=== PATIENT | male | born 1960 | race African-American/Black ===

== ENCOUNTER 2016-11-26 22:46 | Inpatient (IN) | payer OTHER ==
[~2016-11-26] VITALS: Ht 172.7 cm; Wt 83.5 kg
[2016-11-26] MEDS ORDERED: ATRIPLA TABLET1 EAC1 ORAL (22:59)
[2016-11-26] MEDS ORDERED: KEPPRA750 MG ORAL (22:59)
[2016-11-26] MEDS ORDERED: Morphine Sulfate 4mg/ml Inj IVP ONE (23:00)
[2016-11-26 23:05] VITALS: BP 127/70
[2016-11-26 23:21] LABS: BASOPHILS % (AUTO) 0.3 % (0.0-2.0); EOSINOPHILS % (AUTO) 6.3 % (0.0-3.0); LYMPHOCYTES % (AUTO) 31.7 % (20.0-45.0); MEAN CORPUSCULAR HEMOGLOBIN 31.4 PG (27.0-31.0); MEAN CORPUSCULAR HGB CONC 35.2 G/DL (32.0-36.0); MEAN CORPUSCULAR VOLUME 89 FL (80-99); MEAN PLATELET VOLUME 9.4 FL (6.5-10.1); MONOCYTES % (AUTO) 5.2 % (1.0-10.0); NEUTROPHILS % (AUTO) 56.6 % (45.0-75.0); PLATELET COUNT 158 K/UL (150-450); RED CELL DISTRIBUTION WIDTH 11.7 % (11.6-14.8); WHITE BLOOD COUNT 6.8 K/UL (4.8-10.8)
[2016-11-26 23:35] LABS: ALANINE AMINOTRANSFERASE 15 U/L (3-41); ALBUMIN/GLOBULIN RATIO 1.2 (1.0-2.7); ANION GAP 16 (5-15); ASPARTATE AMINO TRANSFERASE 17 U/L (5-40); CALCIUM 9.1 mg/dL (8.6-10.2); CARBON DIOXIDE 23 mEQ/L (20-30); CHLORIDE 97 mEQ/L (98-107); GLOMERULAR FILTRATION RATE > 60 mL/min (>60); HEMOLYSIS 15; LIPASE 47 U/L (< 60); POTASSIUM 4.3 mEQ/L (3.4-4.9); SODIUM 136 mEQ/L (135-145); TOTAL PROTEIN 7.3 g/dL (6.6-8.7); TROPONIN I < 0.30 ng/mL (<=0.30)
[2016-11-26 23:45] LABS: CKMB 1.9 ng/mL (< 6.7)
--- NOTE | 2016-11-27 00:39 | Emergency Room Report ---
History of Present Illness General Chief Complaint: Chest Pain Source: Patient Present Illness HPI Patient presents with complaints of midsternal chest pain Patient reports onset was this afternoon Pain came on during rest At this time patient is pain free Denies any back or flank pain Patient also reports epigastric discomfort Patient has a history of seizure disorder is on Keppra Has been seizure free over the past 10 years Patient is also on HIV medication , Allergies: Coded Allergies: No Known Allergies (Unverified , 11/26/16) Patient History Past Medical History: see triage record Past Surgical History: none Reviewed Nursing Documentation: PMH: Agreed, PSxH: Agreed Nursing Documentation-PMH Hx Seizures: Yes Review of Systems All Other Systems: negative except mentioned in HPI Physical Exam Vital Signs Date Time Temp Pulse Resp B/P Pulse Ox O2 Delivery O2 Flow Rate FiO2 11/26/16 22:54 98.8 59 16 129/77 100 Room Air Sp02 EP Interpretation: reviewed, normal General Appearance: well appearing, no apparent distress Head: normocephalic, atraumatic Eyes: bilateral eye EOMI, bilateral eye PERRL ENT: hearing grossly normal, normal pharynx, TMs + canals normal, uvula midline Neck: full range of motion, supple, no meningismus, no bony tend Respiratory: lungs clear, normal breath sounds, no rhonchi, no respiratory distress, no retraction, no accessory muscle use Cardiovascular #1: normal peripheral pulses, regular rate, rhythm, no edema, no gallop, no JVD, no murmur Gastrointestinal: normal bowel sounds, non tender, soft, no organomegaly, non- distended, no guarding, no hernia, no pulsatile mass, other - Patient has a mildly distended abdomen but soft on exam Genitourinary: no CVA tenderness Musculoskeletal: normal inspection Neurologic: oriented x3, responsive, 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, motor strength/ tone normal, sensory intact Psychiatric: mood/affect normal Skin: normal color, no rash, warm/dry, palpation normal Lymphatic: normal inspection, no adenopathy Medical Decision Making Diagnostic Impression: Primary Impression: ACS (acute coronary syndrome) ER Course Patient is a fairly complex patient with multiple differential to consideration including but not limited to cardiac cardiopulmonary and vascular emergencies Patient's blood work is at baseline levels X-ray imaging is appropriate Patient has done better with pain medication and is admitted for further inpatient care Labs Test 11/26/16 23:11 White Blood Count 6.8 K/UL (4.8-10.8) Red Blood Count 4.50 M/UL (4.70-6.10) Hemoglobin 14.1 G/DL (14.2-18.0) Hematocrit 40.1 % (42.0-52.0) Mean Corpuscular Volume 89 FL (80-99) Mean Corpuscular Hemoglobin 31.4 PG (27.0-31.0) Mean Corpuscular Hemoglobin Concent 35.2 G/DL (32.0-36.0) Red Cell Distribution Width 11.7 % (11.6-14.8) Platelet Count 158 K/UL (150-450) Mean Platelet Volume 9.4 FL (6.5-10.1) Neutrophils (%) (Auto) 56.6 % (45.0-75.0) Lymphocytes (%) (Auto) 31.7 % (20.0-45.0) Monocytes (%) (Auto) 5.2 % (1.0-10.0) Eosinophils (%) (Auto) 6.3 % (0.0-3.0) Basophils (%) (Auto) 0.3 % (0.0-2.0) Sodium Level 136 mEQ/L (135-145) Potassium Level 4.3 mEQ/L (3.4-4.9) Chloride Level 97 mEQ/L (98-107) Carbon Dioxide Level 23 mEQ/L (20-30) Anion Gap 16 (5-15) Blood Urea Nitrogen 17 mg/dL (7-23) Creatinine 1.0 mg/dL (0.7-1.2) Estimat Glomerular Filtration Rate > 60 mL/min (>60) Glucose Level 104 mg/dL (74-106) Calcium Level 9.1 mg/dL (8.6-10.2) Total Bilirubin < 0.2 mg/dL (0.0-1.2) Aspartate Amino Transf (AST/SGOT) 17 U/L (5-40) Alanine Aminotransferase (ALT/SGPT) 15 U/L (3-41) Alkaline Phosphatase 42 U/L (40-129) Total Creatine Kinase 101 U/L (38-174) Creatine Kinase MB 1.9 ng/mL (< 6.7) Creatine Kinase MB Relative Index 1.8 Troponin I < 0.30 ng/mL (<=0.30) Total Protein 7.3 g/dL (6.6-8.7) Albumin 4.0 g/dL (3.5-5.2) Globulin 3.3 g/dL Albumin/Globulin Ratio 1.2 (1.0-2.7) Lipase 47 U/L (< 60) EKG Diagnostic Results Rate: normal Rhythm: NSR ST Segments: no acute changes Rhythm Strip Diag. Results EP Interpretation: yes Rate: 65 Rhythm: NSR, no PVC's, no ectopy Chest X-Ray Diagnostic Results EP Interpretation: Yes Findings: no consolidation, no effusion, no pneumothorax Number of Views: 1 Last Vital Signs Date Time Temp Pulse Resp B/P Pulse Ox O2 Delivery O2 Flow Rate FiO2 11/26/16 23:05 98.8 58 16 127/70 100 Room Air Status: improved Disposition: ADMITTED INPATIENT Condition: Serious Referrals: [facility],REFERRING (PCP) LILO VELÁSQUEZ D.O. Nov 27, 2016 00:39
[2016-11-27] MEDS ORDERED: Ketorolac 30mg Inj IV PRN (00:45)
[2016-11-27] MEDS ORDERED: Nitroglycerin Subl 0.4mg tab (Bottle Of 25) SL PRN (00:45)
[2016-11-27] MEDS ORDERED: DuoNeb 0.5-3(2.5)mg/3ml neb HHN PRN (00:45)
[2016-11-27] MEDS ORDERED: Morphine Sulfate 2mg/ml Inj IVP PRN (00:45)
[2016-11-27] MEDS ORDERED: Miralax 17gm pkt ORAL PRN (00:45)
[2016-11-27 01:40] VITALS: BP 127/68
[2016-11-27 05:14] VITALS: BP 97/48
[2016-11-27] MEDS ORDERED: KEPPRA750 MG ORAL (06:33)
[2016-11-27 06:59] VITALS: BP 107/68
[2016-11-27] MEDS ORDERED: Enalaprilat 2.5mg/2ml Inj IV PRN (07:30)
[2016-11-27] MEDS ORDERED: Diltiazem 25mg/5ml IV PRN (07:30)
[2016-11-27 08:00] VITALS: BP 107/71
[2016-11-27] MEDS ORDERED: Aspirin Baby 81mg ORAL SCH (09:00)
[2016-11-27] MEDS ORDERED: Heparin 5000 units/ml inj SUBQ SCH (09:00)
--- NOTE | 2016-11-27 09:03 | Consultation ---
Consult Note Consult Note ID CONSULT: Dict# [id number] Assessment/Plan ASSESSMENT: 56 y/o male with: // Atypical chest pain - trop(-) x1 - TTE: pending // HIV(+), on atripla - unknown CD4 // Afebrile without leukocytosis // Seizure disorder, on anti-epileptics // NKDA // Full Code PLAN: - resume atripla, f/u with regular HIV provider at discharge - f/u CD4 - f/u imaging - monitor CBC, temperatures, brown-culture if acute change - monitor BMP - monitor troponin Thanks! Will follow AMY DELGADO Nov 27, 2016 09:03
--- NOTE | 2016-11-27 11:20 | Diagnostic Imaging Report ---
Indication: Chest pain Technique: One view of the chest Comparison: none Findings: The heart is enlarged. Lungs and pleural spaces are clear. Impression: No acute process This agrees with the preliminary interpretation provided by the emergency room physician
[2016-11-27 12:00] VITALS: BP 104/68
[2016-11-27 12:21] LABS: TROPONIN I < 0.30 ng/mL (<=0.30)
--- NOTE | 2016-11-27 13:03 | Consultation ---
History of Present Illness General Date patient seen: Nov 27, 2016 Chief Complaint: Chest Pain Referring physician: Dr. Hargrove Present Illness HPI 56 year old male with hx of HIV, unknown DC 4,presented with complaints of midsternal chest pain, during rest Patient also reports epigastric discomfort. Allergies: Coded Allergies: No Known Allergies (Unverified , 11/26/16) Medication History Scheduled Efavirenz/Emtricitab/Tenofovir (Atripla), 1 TAB ORAL DAILY, (Reported) Miscellaneous Medications Levetiracetam (Keppra), 750 MG ORAL, (Reported) Discontinued Medications Levetiracetam (Keppra), 750 MG ORAL BID, (Reported) Discontinued Reason: Medication dose changed Patient History Healthcare decision maker Resuscitation status Full Code Advanced Directive on File Review of Systems All Other Systems: negative except mentioned in HPI Physical Exam General Appearance: WD/WN Lines, tubes and drains: peripheral HEENT: normocephalic, atraumatic Neck: non-tender, normal alignment Respiratory/Chest: chest wall non-tender, lungs clear Cardiovascular/Chest: normal peripheral pulses, normal rate Abdomen: normal bowel sounds Genitourinary/Rectal: normal genital exam Last 24 Hour Vital Signs Date Time Temp Pulse Resp B/P Pulse Ox O2 Delivery O2 Flow Rate FiO2 11/27/16 12:00 97.7 63 20 104/68 97 Room Air 11/27/16 08:00 55 11/27/16 08:00 97.5 58 20 107/71 99 Room Air 11/27/16 07:17 98.8 61 16 107/68 100 Room Air 11/27/16 06:59 98.8 61 16 107/68 100 Room Air 11/27/16 05:14 98.8 61 16 97/48 100 Room Air 11/27/16 01:40 98.8 58 16 127/68 100 Room Air 11/26/16 23:48 98.8 11/26/16 23:05 98.8 58 16 127/70 100 Room Air 11/26/16 23:05 58 16 Room Air 11/26/16 22:54 98.8 59 16 129/77 100 Room Air Intake and Output 11/26/16 11/27/16 19:00 07:00 Output Total 375 ml Balance -375 ml Output Urine Total 375 ml Laboratory Tests Test 11/26/16 23:11 11/27/16 11:45 White Blood Count 6.8 K/UL (4.8-10.8) Pending Red Blood Count 4.50 M/UL (4.70-6.10) L Hemoglobin 14.1 G/DL (14.2-18.0) L Hematocrit 40.1 % (42.0-52.0) L Mean Corpuscular Volume 89 FL (80-99) Mean Corpuscular Hemoglobin 31.4 PG (27.0-31.0) H Mean Corpuscular Hemoglobin Concent 35.2 G/DL (32.0-36.0) Red Cell Distribution Width 11.7 % (11.6-14.8) Platelet Count 158 K/UL (150-450) Mean Platelet Volume 9.4 FL (6.5-10.1) Neutrophils (%) (Auto) 56.6 % (45.0-75.0) Lymphocytes (%) (Auto) 31.7 % (20.0-45.0) Monocytes (%) (Auto) 5.2 % (1.0-10.0) Eosinophils (%) (Auto) 6.3 % (0.0-3.0) H Basophils (%) (Auto) 0.3 % (0.0-2.0) Sodium Level 136 mEQ/L (135-145) Potassium Level 4.3 mEQ/L (3.4-4.9) Chloride Level 97 mEQ/L (98-107) L Carbon Dioxide Level 23 mEQ/L (20-30) Anion Gap 16 (5-15) H Blood Urea Nitrogen 17 mg/dL (7-23) Creatinine 1.0 mg/dL (0.7-1.2) Estimat Glomerular Filtration Rate > 60 mL/min (>60) Glucose Level 104 mg/dL (74-106) Calcium Level 9.1 mg/dL (8.6-10.2) Total Bilirubin < 0.2 mg/dL (0.0-1.2) Aspartate Amino Transf (AST/SGOT) 17 U/L (5-40) Alanine Aminotransferase (ALT/SGPT) 15 U/L (3-41) Alkaline Phosphatase 42 U/L (40-129) Total Creatine Kinase 101 U/L (38-174) Creatine Kinase MB 1.9 ng/mL (< 6.7) Creatine Kinase MB Relative Index 1.8 Troponin I < 0.30 ng/mL (<=0.30) < 0.30 ng/mL (<=0.30) Total Protein 7.3 g/dL (6.6-8.7) Albumin 4.0 g/dL (3.5-5.2) Globulin 3.3 g/dL Albumin/Globulin Ratio 1.2 (1.0-2.7) Lipase 47 U/L (< 60) Lymphocytes Pending Percent CD3 Cells Pending Absolute CD3 Count Pending Percent CD4 Cells Pending Absolute CD4 Count Pending T-Lymphocyte CD4/CD8 Ratio Pending Percent CD8 Cells Pending Absolute CD8 Count Pending Height (Feet): 5 Height (Inches): 8.00 Weight (Pounds): 184 Medications Current Medications Medications (Trade) Dose Ordered Sig/Jessica Route PRN Reason Start Time Stop Time Status Last Admin Dose Admin Acetaminophen (Tylenol) 650 mg Q4H PRN ORAL FEVER 11/27/16 00:45 12/27/16 00:44 Albuterol/ Ipratropium (DuoNeb 0.5-3(2.5)mg/3ml) 3 ml Q4H PRN HHN Shortness of Breath 11/27/16 00:45 12/02/16 00:44 Aspirin (ASA) 162 mg DAILY ORAL 11/27/16 09:00 12/27/16 08:59 11/27/16 09:21 Diltiazem HCl (Cardizem) 10 mg EVERY HOUR PRN IV heart rate more than 120 BPM 11/27/16 07:30 12/27/16 07:29 Efavirenz (Sustiva) 600 mg BEDTIME ORAL 11/27/16 21:00 12/27/16 20:59 UNV Emtricitabine/ Tenofovir (Truvada 200/ 300mg) 1 tab DAILY ORAL 11/27/16 21:00 12/27/16 20:59 UNV Enalaprilat (Vasotec) 2.5 mg Q6H PRN IV sbp more than 160 11/27/16 07:30 4 07:29 Heparin Sodium (Porcine) (Heparin 5000 units/ml) 5,000 units EVERY 12 HOURS SUBQ 11/27/16 09:00 12/27/16 08:59 11/27/16 09:22 Morphine Sulfate (Morphine Sulfate) 2 mg Q4H PRN IVP severe Pain (Pain Scale 7-10) 11/27/16 00:45 12/04/16 00:44 Nitroglycerin (Ntg) 0.4 mg Q5M PRN SL Prn Chest Pain 11/27/16 00:45 12/27/16 00:44 Ondansetron HCl (Zofran) 4 mg Q6H PRN IVP Nausea & Vomiting 11/27/16 00:45 12/27/16 00:44 Pantoprazole (Protonix) 40 mg DAILY ORAL 11/27/16 09:00 12/27/16 08:59 11/27/16 09:21 Polyethylene Glycol (Miralax) 17 gm DAILYPRN PRN ORAL Constipation 11/27/16 00:45 12/27/16 00:44 Temazepam (Restoril) 15 mg HSPRN PRN ORAL Insomnia 11/27/16 00:45 12/04/16 00:44 Assessment/Plan Problem List: (1) ACS (acute coronary syndrome) ICD Codes: I24.9 - Acute ischemic heart disease, unspecified SNOMED: 262730510 (2) HIV disease ICD Codes: B20 - Human immunodeficiency virus [HIV] disease SNOMED: 68989106 Assessment/Plan serial ekg, troponin, HIV consult symptomatic treatment. CHINYERE SUMMERS Nov 27, 2016 13:03
--- NOTE | 2016-11-27 14:40 | History & Physical ---
History and Physical History & Physicial Lloyd Hargrove MD Nov 27, 2016 14:40
--- NOTE | 2016-11-27 17:18 | Consultation ---
DATE OF CONSULTATION: 11/27/2016 REQUESTING PHYSICIAN: Lloyd Hargrove M.D. REASON FOR CONSULTATION: Human immunodeficiency virus. HISTORY OF PRESENT ILLNESS: This is a 56-year-old [place]er male with a history of HIV on Atripla admitted on 11/27/2016 with atypical chest pain. Troponin is negative x1. EKG is unavailable. Echocardiogram is pending. Chest pain now resolved. He is afebrile without leukocytosis. No cultures have been sent. He is not currently receiving any antibiotics or antiretroviral. ID now consulted to assist in management. PAST MEDICAL HISTORY: 1. Human immunodeficiency virus positive, on Atripla with unknown CD4 count. He has human immunodeficiency virus follow up next month. 2. Seizure disorder, on Keppra. PAST SURGICAL HISTORY: None. FAMILY HISTORY: Noncontributory. SOCIAL HISTORY: The patient is originally from [facility]. He has been in [place] for 7 years. Denies tobacco, alcohol, or illicit drug abuse. ALLERGIES: No known drug allergies. MEDICATIONS: 1. No antibiotics. 2. Outpatient Atripla. 3. Aspirin. 4. Protonix. 5. Subcutaneous heparin. REVIEW OF SYSTEMS: As per history of present illness. Ten systems reviewed. All pertinent positives and negatives noted. PHYSICAL EXAMINATION: VITAL SIGNS: Maximum temperature 98.8, blood pressure 107/71, heart rate in the 60s, respiratory rate 20, and saturating 99% on room air. GENERAL: No apparent distress. Nontoxic appearing. CARDIOVASCULAR: Regular rate and rhythm. No murmurs. Chest pain nonreproducible. PULMONARY: Clear to auscultation bilaterally. ABDOMEN: Bowel sounds present. Soft, nondistended, and nontender. EXTREMITIES: No edema. SKIN: No rash. NEUROLOGICAL: Alert and oriented x3, nonfocal. LABORATORY DATA: White blood cell count 6.8, hemoglobin 14.1, platelets 158,000. Sodium 136, potassium 4.3, chloride 97, bicarbonate 23, BUN 17, and creatinine 1. Lipase and LFTs within normal limits. Troponin negative x1. Microbiology, none. IMAGIN. On 11/26/2016 chest x-ray pending. 2. On 11/26/2016 echocardiogram pending. ASSESSMENT: 1. Atypical chest pain with negative troponin x1. 2. EKG unavailable and echocardiogram pending. 3. Human immunodeficiency virus positive, on Atripla with unknown CD4 count. 4. Afebrile without leukocytosis. 5. Seizure disorder. 6. No known drug allergies. 7. Full Code. PLAN: 1. Resume Atripla and followup with regular HIV provider at discharge. 2. Follow up CD4 count. 3. Followup imaging. 4. Monitor CBC and temperatures and panculture if acute change. 5. Monitor BMP. 6. Monitor troponin. Thank you. We will follow. Kenton Anderson M.D. DR: Pancho JOB#: [id number] CC: Lloyd Hargrove M.D.; Fax#: [phone] Smith, M.D. Jose Almodovar M.D; Fax#: [phone]
[2016-11-27] MEDS ORDERED: Efavirenz 200mg cap ORAL SCH (21:00)
[2016-11-27] MEDS ORDERED: Emitricitabine/Tenofovir 200/300mg tab ORAL SCH (21:00)
--- NOTE | 2016-11-28 02:48 | History and Physical Report ---
DATE OF ADMISSION: 11/26/2016 CHIEF COMPLAINT: Chest pain. HISTORY OF PRESENT ILLNESS: This is a 56-year-old M[place] gentleman with a past medical history significant for seizure disorder as well as HIV, on the retroviral medication, who was presented to the hospital complaining about shortness of breath associated with chest pain when he drinks coffee. He stated that it started last night, got progressively worse and he decided to come to the hospital. Shortly after initial evaluation in the emergency, the patient was admitted to the hospital with chest pain, possible acute coronary syndrome. PAST MEDICAL HISTORY/PAST SURGICAL HISTORY: As above. History of seizure disorder. Human immunodeficiency virus. MEDICATIONS: Medications at home is significant for Atripla as well as Keppra. ALLERGY: No known drug allergies. SOCIAL HISTORY: Denies any smoking, alcohol, or drugs. FAMILY HISTORY: Noncontributory. REVIEW OF SYSTEMS: Mostly as above. Denies any dysuria, frequency, hematuria, or hematochezia. Denies any hemoptysis or hematochezia. Denies any chest pain at this time. Denies any seizure activity. Denies any loss of consciousness. Denies any suicidal or homicidal ideation. PHYSICAL EXAMINATION: VITAL SIGNS: On admission, temperature 98.8, pulse of 59, respirations 16, and blood pressure 129/77. GENERAL: The patient is awake, responsive, in no acute distress. HEENT: Pupils are reactive to light. Extraocular movements are intact. NECK: Supple. No JVD. LUNGS: Good air entry. No wheezing or rales. HEART: S1 and S2. Regular rhythm. No gallops. ABDOMEN: Soft, mildly distended. No rebound tenderness. No fluid shift. EXTREMITIES: No cyanosis, clubbing, or edema. NEUROLOGIC: Cranial nerves II through XII are grossly intact. Motor is 5/5 in all the extremities. LABORATORY DATA: On admission from the ER, 3 sets of troponin is negative. Sodium 136, potassium 4.6, chloride 97, bicarbonate 23, BUN 17, creatinine 1.0 and glucose is 104. Liver function is essentially unremarkable. Lipase is 47. The patient had WBC of 6.8, hemoglobin 14, hematocrit of 40, platelet is 158,000. Chest x-ray, which noted no acute cardiopulmonary disease. EKG, sinus bradycardia, rate of 59. No ST elevation or T-wave inversion. ASSESSMENT: 1. Atypical chest pain. 2. Human immunodeficiency virus. 3. Seizure disorder. PLAN: Discussed with the patient with regard to the finding. At this time, we will discharge the patient home to be followed with the [facility] and the patient has an appointment to see them on 12/08/2016, however, discussed with the patient to make an early appointment for possible stress test done as outpatient. FOLLOWUP: I advised the patient if the symptoms comes back, he needs to look into it and come back to the hospital or the nearest hospital. I advised the patient to stop drinking coffee in the meantime until he gets a further cardiac workup as outpatient. He understood that and he explained everything to me and we will discharge the patient to have a followup as outpatient with his primary doctor for further cardiac workup including stress test as outpatient. Lloyd Hargrove M.D. DR: RAMY JOB#: [id number] CC:
[2016-11-28 12:13] LABS: CD3 ABSOLUTE 1404 /uL (622-2402); CD4 ABSOLUTE 358 /uL (359-1519); CD8 ABSOLUTE 1018 /uL (109-897); LYMPHS 39 % (.); WBC 5.2 x10E3/uL (3.4-10.8)
--- NOTE | 2016-11-28 18:51 | Cardiology Report ---
APPROVED REPORT EKG Measurement Heart [id number] Sinus bradycardia Otherwise normal ECG
--- NOTE | 2016-11-30 08:33 | Cardiology Report ---
APPROVED REPORT EXAM: Two-dimensional and M-mode echocardiogram with Doppler and color Doppler. INDICATION LV function M-Mode DIMENSIONS IVSd0.7 (0.7-1.1cm)Left Atrium (MM)3.5 (1.6-4.0cm) LVDd4.1 (3.5-5.6cm)Aortic Root3.0 (2.0-3.7cm) PWd1.3 (0.7-1.1cm)Aortic Cusp Exc.1.6 (1.5-2.0cm) LVDs2.9 (2.5-4.0cm) PWs1.6 cm Normal left ventricular chamber size, systolic function and wall motion. Left ventricular ejection fraction estimated to be 55 %. Mild left ventricular hypertrophy by 2-D. Anterior Echo-free space, may be due to pericardial fat or effusion. All other cardiac chamber sizes are within normal limits. Focal aortic valve sclerosis with adequate cusp excursion. Thickened mitral valve leaflets with normal excursion. Mitral annulus and aortic root calcification. Pulmonic valve not well visualized. Normal tricuspid valve structure. IVC at normal size with physiologic collapse. A color flow and spectral Doppler study was performed and revealed: Trace aortic regurgitation. Trace to mild mitral regurgitation. Mitral diastolic velocities suggest reduced left ventricular relaxation c/w mild LV diastolic dysfunction (Grade I). Mild tricuspid regurgitation. Tricuspid systolic velocities suggests peak right ventricular systolic pressure of 30 mmHg Trace pulmonic regurgitation present.
--- NOTE | 2016-11-30 10:37 | Discharge Summary ---
Discharge Summary Hospital Course Date of Admission Nov 26, 2016 at 23:46 Date of Discharge Nov 27, 2016 at 15:06 Admitting Diagnosis Acute coronary syndrome ELBA Gusman is a 56 year old male who was admitted on Nov 26, 2016 at 23:46 for Acute Coronary Syndrome Hospital Course summary #[id number] Discharge Medications Continued Medications: Efavirenz/Emtricitab/Tenofovir (Atripla) 1 Each Tablet 1 TAB ORAL DAILY, TAB Levetiracetam (Keppra) 750 Mg Tablet 750 MG ORAL, #2 TAB Discharge Condition Upon Discharge: stable Discharge Disposition Patient was discharged to Home () Discharge Diagnoses: Discharge Instructions Discharge Instructions Special Instructions I have been assigned to complete a D/C Summary on this account. I was not involved in the patient management Brea Nguyen NP (Vanchtein) Nov 30, 2016 10:37
--- NOTE | 2016-12-01 01:29 | Discharge Summary 2 SIG ---
DATE OF ADMISSION: 11/26/2016 DATE OF DISCHARGE: 11/27/2016 REASON FOR ADMISSION: 56-year-old male with a known history of HIV and seizure disorder, came to the emergency room for evaluation for chest pain. According to the patient, shortness of breath with chest pain started when he drunk coffee. The patient stated that it started last night, was got progressively worse and he decided to come to the hospital. First troponin in the emergency room negative, the patient was afebrile, no leukocytosis, stable hemoglobin and hematocrit. EKG showed normal sinus rhythm, no ischemic changes. The patient's chest x-ray was negative for any acute cardiopulmonary pathology. The patient was admitted to telemetry floor. ADMITTING DIAGNOSES: 1. Chest pain, rule out acute coronary syndrome. 2. Human immunodeficiency virus status. 3. Seizure disorder. HOSPITAL STAY: The patient was admitted on the telemetry floor. Serial troponin were negative. EKG revealed no ischemic changes. Echocardiogram revealed preserved ejection fraction of 55%, mild left ventricular hypertrophy, right ventricular systolic pressure of 30 as well as mild tricuspid regurgitation and mild pulmonic regurgitation. Chest pain subsided. Supplemental oxygen, pulmonary toilet provided as needed. Pulse oximetry stable on the room air. Aspirin given. Laboratory data stable. Infectious Disease consult was requested, secondary to human immunodeficiency virus status. CD4 count was 358. Continue antiretroviral therapy. No seizure activity while in the hospital. Keppra continued. Per revenue liaison, chest pain was atypical, likely associated with the caffeine consumption. The patient was recommended to stop coffee consumption and follow up with his primary care provider next week for outpatient stress test. The patient understood discharge instructions and agreed with the plan. The patient was chest pain free. No shortness of breath. No palpitations. No dizziness. Due to the rapid and unexpected improvement in patient condition, the patient was discharged in 1 day. DISCHARGE DIAGNOSES: 1. Atypical chest pain, likely related to excessive caffeine intake. 2. Human immunodeficiency virus status. 3. Seizure disorder. DISCHARGE MEDICATIONS: See medication reconciliation. DISCHARGE INSTRUCTIONS: The patient to follow up with the primary care provider next week to schedule outpatient stress test. Lloyd Delvin, M.D. I have been assigned to dictate discharge summary on this account and I was not involved in the patient's management. Brea Nguyen (Vanchtein) NAmauryPAmaury DR: RYLAND JOB#: [id number] CC: YESSICA
== END 2016-11-27 15:06 | disposition home or self-care (01) | DRG 203 ==
LOC: EDBD 22:46 → EMR 22:58 → 2W 23:46 → EDBEDREQ 11-27 07:10
DX: R07.89 Other chest pain (principal); B20 Human immunodeficiency virus [HIV] disease; G40.909 Epilepsy, unspecified, not intractable, without status epilepticus
CPT/HCPCS: 36415; 71010; 80053; 80299; 82550; 82553; 83690; 84484; 85025; 86360; 93005; 93306; J2405